=== PATIENT | male | born 1970 | race Caucasian/White ===

== ENCOUNTER 2016-04-06 23:33 | Emergency (ER) | payer SELFPAY ==
[2016-04-06] MEDS ORDERED: DIPHTH,PERTUSS(ACELL),TET VAC 0.5 ML VIAL IM ONE (23:39)
[2016-04-06] MEDS ORDERED: oxyCODONE HCL/ACETAMINOPHEN 1 TAB TABLET PO ONE (23:39)
[2016-04-06 23:40] VITALS: BP 147/96
[2016-04-06] MEDS ORDERED: LIDOCAINE HCL 20 ML VIAL ONE (23:44)
[2016-04-07] MEDS ORDERED: LIDOCAINE HCL 20 ML VIAL ONE ×2 (00:06→00:25)
[2016-04-07] MEDS ORDERED: oxyCODONE HCL/ACETAMINOPHEN 1 TAB TABLET ONE (00:23)
[2016-04-07] MEDS ORDERED: DIPHTH,PERTUSS(ACELL),TET VAC 0.5 ML VIAL IM ONE (00:24)
--- NOTE | 2016-04-07 00:35 | ERNOTE ---
Medical Problem HPI - Narrative Date of Service: 04/07/16 - General Chief Complaint: Laceration Time Seen by Provider: 04/06/16 23:38 Source: patient Exam Limitations: no limitations - Immun/Allergies/Home Medications Immunizations: IMMUNIZATION HX Immunizations Up to Date No History of Influenza Vaccine No Hx Pneumococcal Vaccination No Allergies/Adverse Reactions: Allergies No Known Allergies Allergy (Verified 04/06/16 23:40) Home Medications: HOME MEDICATIONS Cephalexin Monohydrate [Keflex] 500 mg PO QID #40 cap 04/07/16 [Last Taken Unknown] Sulfamethoxazole/Trimethoprim [Bactrim Ds] 1 tab PO BID #20 tab 04/07/16 [Last Taken Unknown] - History of Present History Narrative: Patient cut his L hand with a knife at home. Patient was trying to separate some steaks. Patient also used some alcohol before the event. Timing: constant Modifying Factors - (Improves): Present: other - Putting pressure Modifying Factors - (Worsens): Present: movement Review of Systems - Review of Systems Constitutional: Present: no symptoms reported EYE: Present: no symptoms reported ENT: Present: no symptoms reported Respiratory: Present: no symptoms reported Cardiology: Present: no symptoms reported Gastrointestinal/Abdominal: Present: no symptoms reported Genitourinary: Present: no symptoms reported Musculoskeletal: Present: muscle pain - on the L hand area Skin: Present: other - Patient has 4 lacerations on the L hand area. Patient has a laceration on the thenar eminence, on on the radial side of the 2nd proximal phalange, one the tip of the 3rd phalange and one at the tip of the 4th phalange. Neurological: Present: no symptoms reported Endocrine: Present: no symptoms reported Hematologic/Lymphatic: Present: no symptoms reported Psych: Present: no symptoms reported All Other Systems: All systems neg except as marked - Patient's Past Medical History Patient History - Medical: No pertinent hx Patient History - Cardiac/Respiratory: No pertinent hx Patient History - Cancer: No Hx of Cancer Patient History - Surgical Procedures: No surgical history Patient History - Other: None - Social History Living Situations: home Psych History: No pertinent hx Smoking Status: Never smoker Have you smoked in the past 12 months: No Do you dip or chew tobacco: No Alcohol Use: occasionally Drug Use: none - Immunizations Immunizations Up to Date: No Hx Pneumococcal Vaccination: No History of Influenza Vaccine: No Physical Exam - Physical Exam General Appearance: Present: wd/wn, alert, no apparent distress Eye Exam: Normal inspection: bilateral Ears, Nose, Throat: Present: normal ENT inspection, hearing grossly normal, normal pharynx Neck: Present: normal inspection, nontender Respiratory: Present: no respiratory distress, normal breath sounds, no accessory muscle use, chest nontender, lungs clear Cardiovascular/Chest: Present: regular rate, rhythm, no murmur, normal peripheral pulses Gastrointestinal/Abdominal: Present: normal bowel sounds Back Exam: Present: normal inspection Extremity Exam: Present: other - Patient has 4 lacerations on the L hand area. Patient has a laceration on the thenar eminence of around 8 cm, on on the radial side of the 2nd proximal phalange that is around 3cm, one the tip of the 3rd phalange of 1cm and one at the tip of the 4th phalange of 1cm. A total of 15 stitches were placed to aproximate tissue. No FB found, capillary refill of < 2 secs was found, and good sensation. Neurological Exam: Present: alert, oriented, normal mood/affect, no motor/ sensory deficits Skin Exam: Present: normal color, warm/dry, other - Patient with mulitple laceration on the L hand. Lymphatic Exam: Present: no adenopathy ED Progress - Date and Time Seen: Date and Time: 04/07/16 00:30 Patient's bleeding was controlled by stitching. Patient has been informed of the risk of infection and the need to follow up in 2 days for a wound check at the ER. Antibiotics will be given to patient. - Vital Signs Patient's Vital Signs:: I have reviewed the patient's vital signs. Vital Signs: Vital Signs 04/06/16 23:35 Pulse Rate 85 Respiratory 18 Rate Blood Pressure 147/96 - Progress/Reassessment Chief Complaint: Laceration Progress:: Improved - Transfer of Care Expected Disposition: Discharge Procedures Left Hand Anesthesia: 1% Lidocaine Length of Repair/Wound (cm): 13 Wound's Depth/Shape: into subcutaneous, irregular Wound Explored: clean Wound Intervention: irrigated w/saline Foreign body identified: other - No FB found Distal NVT: neuro/vasc intact, no tendon injury Wound Repaired With: sutures Suture Size/Type: 4-0, nylon Number of Sutures: 15 Layer Closure: Simple Estimated blood loss (ml): 5 Wound Dressing: sterile dressing applied Complications: Pt kelsey procedure well Departure - Departure Clinical Impression: Hand laceration Qualifiers: Encounter type: initial encounter Laterality: left Qualified Code(s): S61.412A - Laceration without foreign body of left hand, initial encounter Disposition: Home self-care Condition: Stable Instructions: Laceration Care, Adult, [id number] Additional Instructions: Wash with soap and water, return in 2 days of wound check follow up. Prescriptions: Cephalexin Monohydrate [Keflex] 500 mg PO QID #40 cap Sulfamethoxazole/Trimethoprim [Bactrim Ds] 1 tab PO BID #20 tab
== END 2016-04-07 00:40 | disposition home or self-care (01) ==
LOC: ER 23:33
PROC: 0JQK0ZZ Repair Left Hand Subcutaneous Tissue and Fascia, Open Approach (ICD-10-PCS; principal; 2016-04-06)
DX: S61.412A Laceration without foreign body of left hand, initial encounter (principal); Z23 Encounter for immunization; X58.XXXA Exposure to other specified factors, initial encounter; Y93.G3 Activity, cooking and baking; Y92.000 Kitchen of unspecified non-institutional (private) residence as the place of occurrence of the external cause

== ENCOUNTER 2017-02-25 10:19 | Emergency (ER) | payer SELFPAY ==
[2017-02-25 10:29] VITALS: BP 127/88
[2017-02-25] MEDS ORDERED: KETOROLAC TROMETHAMINE 60 MG/2 ML VIAL IM ONE ×2 (10:39→10:44)
--- NOTE | 2017-02-25 10:44 | ERNOTE ---
Lower Extremity HPI - Narrative Date of Service: 02/25/17 - General Lower Extremities Pain: knee: right Time Seen by Provider: 02/25/17 10:33 Source: patient, RN notes reviewed Exam Limitations: no limitations - Immun/Allergies/Home Medications Immunizations: IMMUNIZATION HX Immunizations Up to Date Yes History of Influenza Vaccine No Hx Pneumococcal Vaccination No Allergies/Adverse Reactions: Allergies Allergy/AdvReac Type Severity Reaction Status Date / Time No Known Allergies Allergy Verified 02/25/17 10:29 Home Medications: HOME MEDICATIONS HYDROcodone/ACETAMINOPHEN [Roundup 5-325] 1 - 2 tab PO Q6H PRN #12 tab 02/25/17 [ Last Taken Unknown] Ibuprofen [Motrin] 600 mg PO Q6H PRN #40 tab 02/25/17 [Last Taken Unknown] - History of Present Illness Narrative: 47 y/o male with pain in his right knee that began during sleep 2 nights ago. 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 He reports the pain radiates all the way down to his foot. Method of Injury: Reports: no apparent injury Modifying Factors - (Improves): Denies: immobilization, movement, rest Modifying Factors - (Worsens): Reports: movement. Denies: immobilization, rest Associated Symptoms: Denies: unable to bear weight Prior Treament: Denies: recently seen, similar symptoms before Review of Systems - Review of Systems Constitutional: Absent: recent illness, fever, chills EYE: Present: no symptoms reported ENT: Present: no symptoms reported Respiratory: Absent: shortness of breath, cough Cardiology: Absent: chest pain, palpitations, edema, claudication Gastrointestinal/Abdominal: Absent: nausea, vomiting, abdominal pain Genitourinary: Present: no symptoms reported Musculoskeletal: Present: muscle pain, joint pain, joint swelling Skin: Present: lesions. Absent: rash, lumps, change in color Neurological: Absent: headache, dizziness/light-headedness, weakness, numbness, tingling Endocrine: Present: no symptoms reported Hematologic/Lymphatic: Present: no symptoms reported Psych: Present: no symptoms reported - Patient's Past Medical History Patient History - Medical: No pertinent hx Patient History - Cardiac/Respiratory: No pertinent hx Patient History - Cancer: No Hx of Cancer Patient History - Surgical Procedures: No surgical history Patient History - Other: None - Social History Living Situations: significant other Abuse History: No History of abuse Psych History: No pertinent hx Smoking Status: Never smoker Have you smoked in the past 12 months: No Do you dip or chew tobacco: No Alcohol Use: occasionally Drug Use: marijuana - Immunizations Immunizations Up to Date: Yes Hx Pneumococcal Vaccination: No History of Influenza Vaccine: No Physical Exam - Physical Exam General Appearance: Present: wd/wn, alert, mild distress Head Exam: Present: normal inspection, no evidence of injury Neck: Present: normal inspection, nontender, supple Respiratory: Present: no respiratory distress, normal breath sounds, no accessory muscle use, lungs clear Cardiovascular/Chest: Present: regular rate, rhythm, no murmur, normal peripheral pulses Extremity Exam: Present: joint swelling - Anterior right knee. Absent: decreased range of motion, pedal edema, calf tenderness, joint redness Neurological Exam: Present: alert, oriented, normal mood/affect, no motor/ sensory deficits Skin Exam: Present: normal color, warm/dry ED Progress - Results and Orders Patient's Lab Results:: I have reviewed the patient's lab results. - Vital Signs Patient's Vital Signs:: I have reviewed the patient's vital signs. Vital Signs: Vital Signs 02/25/17 10:24 Temperature 37.2 C Pulse Rate 90 Respiratory 15 Rate Blood Pressure 127/88 O2 Sat by Pulse 97 Oximetry - X-Ray X-Ray #1 X-Ray: knee Interpretation: Reviewed by me X-ray Comments: Technique: Knee 3 Views RT * Findings: Normal bony mineralization and alignment. No fracture or dislocation. No productive or erosive changes are seen. No lytic or blastic changes. There is a small knee joint effusion. IMPRESSION: NO ACUTE OSSEOUS ABNORMALITY Electronically signed by Alli Espinal M.D.. - Progress/Reassessment Chief Complaint: Lower Extremity Pain/ Injury Progress:: Unchanged Progress Note-Subjective: 02/25/17 11:37 Reports no improvement in pain after Toradol. Labs and xray remarkable for only a small joint effusion. Discussed results and need for f/u if no improvement with conservative treatment. Departure Clinical Impression: Knee pain, acute Qualifiers: Laterality: right Qualified Code(s): M25.561 - Pain in right knee - Departure Disposition: Home self-care Condition: Stable Instructions: Knee Effusion, [id number] Additional Instructions: Wear PAOLA wrap for support as needed Ice periodically Avoid kneeling Contact orthopedics for follow up if pain is not improving in the next few days Referrals: Festus Cruz MD [Staff Physician] - Prescriptions: HYDROcodone/ACETAMINOPHEN [Roundup 5-325] 1 - 2 tab PO Q6H PRN #12 tab PRN Reason: Pain Ibuprofen [Motrin] 600 mg PO Q6H PRN #40 tab PRN Reason: Pain
[2017-02-25 10:51] LABS: Hematocrit 47.2 % (42.0-52.0); Hemoglobin 16.9 gm/dL (13.5-18.0); Mean Cell Volume 96.1 fl (78-100); Mean Corpuscular Hemoglobin 34.4 pg (27-31); Mean Corpuscular Hgb Conc 35.8 g/dl (32-36); Neutrophil # 5.3 K/mm3 (1.3-6.0); Neutrophil % 72.5 % (42-75.0); Platelet Count 206 K/mm3 (150-450); Red Blood Count 4.91 M/mm3 (4.7-6.0); Red Cell Distribution Width 12.1 % (11.5-14.0); White Blood Count 7.4 K/mm3 (4.0-10.5)
[2017-02-25 11:06] LABS: ALT 40 U/L (19-67); AST 20 U/L (0-48); Albumin * 4.1 gm/dl (3.4-5.0); Alkaline Phosphatase * 77 U/L (50-170); Anion Gap 11.8 mmol/L (6.8-13.8); BUN/Creatinine Ratio 9.4 (9.0-21.6); Bilirubin, Total 0.7 mg/dL (0.0-1.1); Blood Urea Nitrogen 9 mg/dL (6-23); Ca. Corrected For Albumin 8.5 mg/dL (8.4-10.2); Calcium * 8.9 mg/dL (7.9-10.9); Carbon Dioxide 27.9 mmol/L (24-32.6); Chloride 101 mmol/L (97-106); Glucose * 125 mg/dL (70-110); Potassium 3.7 mmol/L (3.4-4.6); Sodium 137 mmol/L (132-142); Total Protein 7.5 gm/dL (6.2-8.2); Uric Acid 4.8 mg/dL (2.6-7.2)
== END 2017-02-25 11:41 | disposition home or self-care (01) ==
LOC: ER 10:19
DX: M25.561 Pain in right knee